=== PATIENT | female | born 1960 | race Caucasian/White ===

== ENCOUNTER 2017-09-12 00:57 | Emergency (ER) | payer OTHER ==
--- NOTE | 2017-09-12 01:50 | PDOC ---
History of Present Illness - General History Source: Patient Exam Limitations: No Limitations - History of Present Illness Initial Comments: 09/12/17 02:09 The patient is a 56 year old female with a significant PMH of hypertension, hyperlipidemia, diabetes, and thyroid problems who presents to the emergency department complaining of weight loss that began approximately 3 months ago and high blood glucose levels for the past 2 weeks. The patient states she has been measuring her glucose at home and in the last 2 weeks reports her glucose levels were 300+. The patient states her glucose level at baseline is normally around 150. The patient notes she has an appointment with her assignment desk assistant on 09/15/17. The patient states she ate at a cheeseburger with fries for lunch and broccoli with fried plantains for dinner at 9PM yesterday. The patient states she normally eats two to three meals a day. The patient notes she is taking synthroid but occasionally forgets to take her meds. The patient denies chest pain, shortness of breath, headache and dizziness. Denies fever, chills, nausea, vomit, diarrhea and constipation. Denies dysuria, frequency, urgency and hematuria. Allergies: NKA Past surgical history: cholecystectomy Social history: No reported alcohol, cigarette, or drug use. PCP: <Korin Cheng - Last Filed: 09/12/17 02:09> <Gila Griffin - Last Filed: 09/12/17 06:31> - General Chief Complaint: Blood Sugar Problem Stated Complaint: WEAKNESS Time Seen by Provider: 09/12/17 01:37 Past History <Korin Cheng - Last Filed: 09/12/17 02:09> - Past Medical History Anemia: No Asthma: No Cancer: No Cardiac Disorders: No CVA: No COPD: No HTN: Yes Hypercholesterolemia: Yes - Surgical History Abdominal Surgery: Yes Appendectomy: Yes Cholecystectomy: Yes - Immunization History Immunization Up to Date: Yes - Suicide/Smoking/Psychosocial Hx Smoking Status: No Smoking History: Never smoked Have you smoked in the past 12 months: No Number of Cigarettes Smoked Daily: 0 Hx Alcohol Use: No Drug/Substance Use Hx: No Substance Use Type: None <Gila Griffin - Last Filed: 09/12/17 06:31> - Past Medical History Allergies/Adverse Reactions: Allergies Allergy/AdvReac Type Severity Reaction Status Date / Time oxycodone HCl [From Percocet] Allergy Nausea Verified 09/06/15 16:28 Home Medications: Ambulatory Orders Simvastatin [Zocor -] 10 mg PO DAILY 09/21/14 Enalapril Maleate [Vasotec] 10 mg PO DAILY 08/08/15 Levothyroxine Sodium [Levoxyl] 25 mcg PO DAILY 09/12/17 Sitagliptin Phosphate [Januvia -] 100 mg PO DAILY@0700 09/12/17 Review of Systems - Review of Systems Able to Perform ROS?: Yes Comments:: 09/12/17 02:12 GENERAL/CONSTITUTIONAL: (+) Weight loss. (+) High blood glucose levels. No fever or chills. No weakness. HEAD, EYES, EARS, NOSE AND THROAT: No change in vision. No ear pain or discharge. No sore throat. CARDIOVASCULAR: No chest pain or shortness of breath. RESPIRATORY: No cough, wheezing, or hemoptysis. GASTROINTESTINAL: No nausea, vomiting, diarrhea or constipation. GENITOURINARY: No dysuria, frequency, or change in urination. MUSCULOSKELETAL: No joint or muscle swelling or pain. No neck or back pain. SKIN: No rash NEUROLOGIC: No headache, vertigo, loss of consciousness, or change in strength/ sensation. ENDOCRINE: No increased thirst. No abnormal weight change. HEMATOLOGIC/LYMPHATIC: No anemia, easy bleeding, or history of blood clots. ALLERGIC/IMMUNOLOGIC: No hives or skin allergy. <Korin Cheng - Last Filed: 09/12/17 02:09> *Physical Exam - Vital Signs Last Vital Signs Temp Pulse Resp BP Pulse Ox 98.1 F 84 18 154/101 100 09/12/17 01:59 09/12/17 01:59 09/12/17 01:59 09/12/17 01:59 09/12/17 01:59 - Physical Exam Comments: 09/12/17 02:13 GENERAL: Awake, alert, and fully oriented, in no acute distress HEAD: No signs of trauma EYES: PERRLA, EOMI, sclera anicteric, conjunctiva clear ENT: Auricles normal inspection, hearing grossly normal, nares patent, oropharynx clear without exudates. Moist mucosa NECK: Normal ROM, supple, no lymphadenopathy, JVD, or masses LUNGS: Breath sounds equal, clear to auscultation bilaterally. No wheezes, and no crackles HEART: Regular rate and rhythm, normal S1 and S2, no murmurs, rubs or gallops ABDOMEN: Soft, nontender, normoactive bowel sounds. No guarding, no rebound. No masses EXTREMITIES: Normal range of motion, no edema. No clubbing or cyanosis. No cords, erythema, or tenderness NEUROLOGICAL: Cranial nerves II through XII grossly intact. Normal speech, normal gait SKIN: Warm, Dry, normal turgor, no rashes or lesions noted. <Korin Cheng - Last Filed: 09/12/17 02:09> ED Treatment Course - LABORATORY CBC & Chemistry Diagram: 09/12/17 02:03 09/12/17 02:03 <Gila Griffin - Last Filed: 09/12/17 06:31> Medical Decision Making - Medical Decision Making 09/12/17 01:59 Pt comes with complaint that she has been losing weight x 3 mos. Pt has DM and she has thyroid problems. She states that all she ate today was a cheeseburger and fries and diet soda. We discussed the fact that she would lose weight if she is not eating enough. Pt has an appointment with her assignment desk assistant on Sep 15 and she will discuss thyroid, DM and weight lodss with her speialist. Today we are checking labs and hydrating patient. 09/12/17 02:59 Labs are normal; TSH pending; acetone negative. 09/12/17 06:30 TSH slightly elevated; pt admits she skips her synthroid and she will be following with endocrine in 3 days. Pt is stable for discharge. CXR normal <Gila Griffin - Last Filed: 09/12/17 06:31> *DC/Admit/Observation/Transfer - Attestations Scribe Attestion: 09/12/17 02:14 Documentation prepared by Korin Cheng, acting as medical planner for Gila Griffin MD. <Korin Cheng - Last Filed: 09/12/17 02:09> - Discharge Dispostion Admit: No <Gila Griffin - Last Filed: 09/12/17 06:31> Diagnosis at time of Disposition: Weakness, Weight loss - Discharge Dispostion Disposition: HOME Condition at time of disposition: Stable - Patient Instructions Printed Discharge Instructions: DI for Weight Loss, DI for Hypothyroidism Print Language: BELARUSIAN
[2017-09-12 02:06] VITALS: TEMP 98.1; BMI 28.3
[2017-09-12 02:11] LABS: URINE APPEARANCE CLEAR; URINE BILIRUBIN NEGATIVE (NEGATIVE); URINE BLOOD NEGATIVE (NEGATIVE); URINE COLOR LTYELLOW; URINE GLUCOSE (UA) 3+ (NEGATIVE); URINE KETONE NEGATIVE (NEGATIVE); URINE NITRITE NEGATIVE (NEGATIVE); URINE PROTEIN NEGATIVE (NEGATIVE); URINE UROBILINOGEN NEGATIVE mg/dL (0.2-1.0)
[2017-09-12 02:15] LABS: EOS % 7.7 % (0-4.5); HEMATOCRIT 43.1 % (32.4-45.2); HEMOGLOBIN 14.3 GM/dL (10.7-15.3); LYMPH % 35.6 % (8-40); MCH 28.4 pg (25.7-33.7); MCHC 33.2 g/dl (32.0-36.0); MEAN CELL VOLUME 85.5 fl (80-96); MEAN PLT VOLUME 8.8 fl (7.5-11.1); NEUT % 48.7 % (42.8-82.8); PLATELET COUNT 248 K/MM3 (134-434); RBC 5.04 M/mm3 (3.60-5.2); RDW 12.8 % (11.6-15.6); WHITE BLOOD COUNT 7.4 K/mm3 (4.0-10.0)
[2017-09-12 02:23] LABS: URINE LEUK ESTERASE 3+ (NEGATIVE)
[2017-09-12 02:24] LABS: EPI CELLS RARE /HPF (FEW)
[2017-09-12 02:42] LABS: ALBUMIN 3.7 g/dl (3.4-5.0); ALK PHOS 100 U/L (45-117); ANION GAP 12 (8-16); BILIRUBIN,TOTAL 0.3 mg/dL (0.2-1.0); BLOOD UREA NITROGEN 17 mg/dL (7-18); CALCIUM 9.4 mg/dL (8.5-10.1); CHLORIDE 99 mmol/L (98-107); CO2 26 mmol/L (21-32); CREATININE 0.9 mg/dL (0.55-1.02); GLUCOSE,RANDOM 282 mg/dL (74-106); SGOT/AST 13 U/L (15-37); SGPT/ALT 24 U/L (12-78); SODIUM 137 mmol/L (136-145); TOT PROT 7.4 g/dl (6.4-8.2)
[2017-09-12 02:57] LABS: ACETONE SERUM NEGATIVE (NEGATIVE)
[2017-09-12 03:59] VITALS: BP 149/80; PULSE 76
== END 2017-09-12 04:30 | disposition home or self-care (01) ==
LOC: JER 00:57
DX: R53.1 Weakness (principal); R63.4 Abnormal weight loss; Z68.22 Body mass index [BMI] 22.0-22.9, adult; E03.9 Hypothyroidism, unspecified; I10 Essential (primary) hypertension; E11.9 Type 2 diabetes mellitus without complications; Z79.84 Long term (current) use of oral hypoglycemic drugs
CPT/HCPCS: 36415; 71020-TC; 80053; 81003; 81015; 82009; 84443; 85025; 87086; 99282-25

== ENCOUNTER 2020-05-18 01:39 | Emergency (ER) | payer OTHER ==
[2020-05-18 02:08] VITALS: TEMP 98.1; BMI 27.4
[2020-05-18] MEDS ORDERED: MAG HYDROX/AL HYDROX/SIMETH 30 ML UNIT-DOSE CUP PO ONE (02:13)
[2020-05-18] MEDS ORDERED: FAMOTIDINE 20 MG/50 ML IVPB 20 MG/50 ML MG IVPB ONE ×2 (02:13→02:39)
--- NOTE | 2020-05-18 02:18 | PDOC ---
History of Present Illness - General Chief Complaint: Pain, Acute Stated Complaint: ABDOMINAL PAIN Time Seen by Provider: 05/18/20 01:46 History Source: Patient Exam Limitations: No Limitations - History of Present Illness Initial Comments: 05/18/20 02:14 HPI: 59 yo F pmh HTN, HLD, DM, ?PCI in January at [facility] presenting with epigastric burning pain for 1 day in setting of eating a burger with buffalo sauce. She reports burning after eating the meal, worsened when laying flat last night and again when laying flat tonight. Tried taking Reyna [place] and seltzer water with lemon with no relief. Denies any discomfort like this before. Pain is burning in quality, radiates straight up to her throat. Denies any other associated symptoms. Denies chest pain, shortness of breath, nausea, vomiting, fevers, chills, recent illness, weakness, fatigue. Reports one surgery, gall bladder removal "many years ago." Meds: Per chart All: Oxycodone PMH: As above PSH: Laura Past History - Travel History Traveled outside of the country in the last 30 days: No Close contact w/someone who was outside of country & ill: No - Medical History Allergies/Adverse Reactions: Allergies Allergy/AdvReac Type Severity Reaction Status Date / Time oxycodone HCl [From Percocet] Allergy Nausea Verified 03/02/20 15:48 Home Medications: Ambulatory Orders Carvedilol [Coreg -] 3.125 mg PO BID 03/02/20 Lisinopril/Hydrochlorothiazide [Lisinopril-Hctz 20-25 mg Tab] 1 each PO DAILY 03/02/20 Metformin HCl [Glucophage] 1,000 mg PO DAILY 03/02/20 Anemia: No Asthma: No Cancer: No Cardiac Disorders: No CVA: No COPD: No Diabetes: Yes HTN: Yes Hypercholesterolemia: Yes Thyroid Disease: Yes (hypo) - Surgical History Abdominal Surgery: Yes Appendectomy: Yes Cholecystectomy: Yes - Reproductive History Is Patient Now?: No - Immunization History Immunization Up to Date: Yes - Psycho-Social/Smoking History Smoking Status: No Smoking History: Never smoked Have you smoked in the past 12 months: No Number of Cigarettes Smoked Daily: 0 - Substance Abuse Hx (Audit-C & DAST Scrn) How often the patient has a drink containing alcohol: Never Score: In Men: 4 or > Positive; In Women: 3 or > Positive: 0 Screen Result (Pos requires Nsg. Audit-10AR): Negative In the last yr the pt used illegal drug/Rx for NonMed reason: No Score: Yes response is considered Positive: 0 Screen Result (Positive result requires Nsg. DAST-10): Negative Review of Systems - Review of Systems Able to Perform ROS?: Yes Is the patient limited Persian proficient: Yes Constitutional: No: Chills, Fever, Weakness HEENTM: No: Recent change in vision, Nose Congestion, Throat Pain Respiratory: No: Cough, Shortness of Breath Cardiac (ROS): No: Chest Pain, Edema, Irregular Heart Rate, Lightheadedness, Palpitations, Syncope, Chest Tightness ABD/GI: No: Constipated, Diarrhea, Nausea, Vomiting : No: Burning, Dysuria, Frequency Musculoskeletal: No: Muscle Pain, Muscle Weakness, Neck Pain Integumentary: No: Bruising, Pruritus, Rash Neurological: No: Headache, Numbness, Tingling, Weakness Psychiatric: No: Stressors, Change in Appetite Endocrine: No: Increased Thirst, Increased Urine, Change in Weight Hematologic/Lymphatic: No: Anemia, Blood Clots, Easy Bleeding All Other Systems: Reviewed and Negative *Physical Exam - Vital Signs Last Vital Signs Temp Pulse Resp BP Pulse Ox 98.1 F 74 20 151/90 100 05/18/20 01:56 05/18/20 01:56 05/18/20 01:56 05/18/20 01:56 05/18/20 01:56 - Physical Exam 05/18/20 02:21 Vitals reviewed, AFVSS GEN: Well appearing, appears stated age, NAD, comfortable. AAOx3. HEENT: NCAT, EOMI, PERRL. Sclera anicteric, noninjected. No facial asymmetry. Moist mucous membranes. Normal voice. Trachea midline. CV: RRR, S1/S2, no murmurs / rubs / gallops appreciated. LUNG: CTABL, normal work of breathing. No wheezes, rales, rhonchi. No cough. Speaking full sentences. GI: Soft, mildly TTP in epigastrium, non-distended, +BS, no guarding, no rebound. No masses. EXTREMITIES: 2+ distal pulses. No clubbing / cyanosis / edema. No gross deform ity in any extremity. SKIN: Warm, dry, no rashes appreciated, non-jaundiced. PSYCH: Normal mood and affect. Cooperative and appropriate. NEURO: CN grossly intact. Moving all extremities well. Normal strength and sensation grossly. Heart Score/ECG Review - History History: Slightly suspicious - Electrocardiogram EKG: Normal - Age Age: 45-65 - Risk Factors Based on the list above the patient has:: >/=3 risk factors or Hx atherosclerotic disease - Troponin Troponin: </= normal limit - Score Heart Score - Total: 3 ED Treatment Course - LABORATORY CBC & Chemistry Diagram: 05/18/20 02:30 05/18/20 02:30 Medical Decision Making - Medical Decision Making 05/18/20 02:18 59 yo F pmh HTN, HLD, DM, ?PCI in January at [facility] presenting with epigastric burning pain for 1 day in setting of eating a burger with buffalo sauce. History notable for burning quality, worse when flat, onset after food, midline location with upward radiation. Exam notable for stable vitals, mildly TTP epigastrium. Together concerning for GERD, less likely PUD in this patient without history, gastritis / early gastroenteritis, will obtain cardiac workup given patient's history. - CBC, CMP, Cardiac - EKG, CXR - Pepcid - Maalox 05/18/20 02:33 EKG with biphasic T wave in V3, sub-mm ST depressions in I and all the precordial leads, c/w prior EKG. Otherwise NSR, normal axis, normal intervals and no acute ST changes. 05/18/20 04:28 BUN elevated, normal creatinine, 1L NS ordered Labs otherwise unremarkable, normal troponin Symptomatically improved Dispo: Home Discharge - Discharge Information Problems reviewed: Yes Clinical Impression/Diagnosis: GERD (gastroesophageal reflux disease) Qualifiers: Esophagitis presence: esophagitis presence not specified Qualified Code(s): K2 1.9 - Gastro-esophageal reflux disease without esophagitis Condition: Stable Disposition: HOME - Admission No - Follow up/Referral - Patient Discharge Instructions Patient Printed Discharge Instructions: DI for Gastroesophageal Reflux Disease (GERD) Additional Instructions: You were seen and evaluated for upper abdominal pain. You may take Maalox or Pepcid (both available over the counter at your pharmacy) for recurrent symptoms. Follow up with your primary care doctor within 1 week. Return to the ED for any new or concerning symptoms including but not limited to: chest pain, nausea and vomiting, inability to breathe. - Post Discharge Activity
[2020-05-18] MEDS ORDERED: ACETAMINOPHEN 325 MG TABLET (FP) PO ONE (02:22)
--- NOTE | 2020-05-18 02:31 | PDOC ---
Attending Attestation - Resident Resident Name: Joshua Ambrose - ED Attending Attestation I have performed the following: I have examined & evaluated the patient, The case was reviewed & discussed with the resident, I agree w/resident's findings & plan - HPI HPI: 05/18/20 04:29 Pt ate cheeseburgers at her daughter's home and she was gassy and uncomfortable since. She has never had abd or chest pain. Just reflux and gas. Pt drove herself to the ER and she states that she will drive herself home. - Physicial Exam PE: 05/18/20 04:30 Agree with resident exam Normal exam Gassy abd sounds in all 4 quadrants. - Medical Decision Making 05/18/20 04:10 Labs normal; EKG normal; EKG unchanged 05/18/20 04:30 Pt feeling better She received 250 ml saline.She is stable for d/c/ home Pepcid and maalox helped. Discharge - Discharge Information Problems reviewed: Yes Clinical Impression/Diagnosis: GERD (gastroesophageal reflux disease) Qualifiers: Esophagitis presence: esophagitis presence not specified Qualified Code(s): K21.9 - Gastro-esophageal reflux disease without esophagitis Condition: Stable Disposition: HOME - Additional Discharge Information Prescriptions: Simethicone [Mylicon -] 80 mg PO DAILY #10 tab.chew - Follow up/Referral - Patient Discharge Instructions Patient Printed Discharge Instructions: DI for Gastroesophageal Reflux Disease (GERD) Additional Instructions: You were seen and evaluated for upper abdominal pain. You may take Maalox or Pepcid (both available over the counter at your pharmacy) for recurrent symptoms. Follow up with your primary care doctor within 1 week. Return to the ED for any new or concerning symptoms including but not limited to: chest pain, nausea and vomiting, inability to breathe. - Post Discharge Activity
[2020-05-18] MEDS ORDERED: ACETAMINOPHEN 325 MG TABLET (FP) ONE (02:38)
[2020-05-18] MEDS ORDERED: MAG HYDROX/AL HYDROX/SIMETH 30 ML UNIT-DOSE CUP ONE (02:39)
[2020-05-18 02:45] LABS: HEMATOCRIT 38.2 % (32.4-45.2); MCH 30.4 pg (25.7-33.7); MEAN CELL VOLUME 89.6 fl (80-96); MEAN PLT VOLUME 8.6 fl (7.5-11.1); PLATELET COUNT 240 K/MM3 (134-434); RBC 4.27 M/mm3 (3.60-5.2); RDW 13.3 % (11.6-15.6); WHITE BLOOD COUNT 6.5 K/mm3 (4.0-10.0)
[2020-05-18 02:46] LABS: BASO % 0.5 % (0-2.0); EOS % 2.7 % (0-4.5); LYMPH % 31.5 % (8-40); MONO % 8.3 % (3.8-10.2)
[2020-05-18 03:00] LABS: INR 0.95 (0.83-1.09); PROTHROMBIN TIME (PATIENT) 11.2 SEC (9.7-13.0)
[2020-05-18 03:13] LABS: ALBUMIN 3.9 g/dl (3.4-5.0); ALK PHOS 83 U/L (45-117); ANION GAP 8 MMOL/L (8-16); BILIRUBIN,TOTAL 0.2 mg/dL (0.2-1); CALCIUM 9.2 mg/dL (8.5-10.1); CHLORIDE 101 mmol/L (98-107); CO2 28 mmol/L (21-32); GLUCOSE,RANDOM 145 mg/dL (74-106); POTASSIUM 3.8 mmol/L (3.5-5.1); SGOT/AST 19 U/L (15-37); SGPT/ALT 25 U/L (13-61); SODIUM 137 mmol/L (136-145); TOT PROT 7.4 g/dl (6.4-8.2)
[2020-05-18] MEDS ORDERED: SODIUM CHLORIDE 0.9% 500 ML INFUS.BAG IV ONE (04:06)
[2020-05-18] MEDS ORDERED: SIMETHICONE 80 MG TAB.CHEW (FP) PO ONE (04:31)
[2020-05-18 06:46] VITALS: BP 144/91; PULSE 82
--- NOTE | 2020-05-18 14:57 | EKG ---
Test Reason : Blood Pressure : / mmHG Vent. Rate : 075 BPM Atrial Rate : 075 BPM P-R Int : 130 ms QRS Dur : 074 ms QT Int : 400 ms P-R-T Axes : 036 010 002 degrees QTc Int : 446 ms NORMAL SINUS RHYTHM NONSPECIFIC ST ABNORMALITY ABNORMAL ECG WHEN COMPARED WITH ECG OF 01-FEB-2020 14:36, T WAVE INVERSION LESS EVIDENT IN ANTERIOR LEADS Confirmed by Tato Sandoval ([id number]) on 05/18/2020 2:57:22 PM Referred By: Confirmed By:Tato Sandoval
== END 2020-05-18 05:40 | disposition home or self-care (01) ==
LOC: JER 01:39
PROC: 3E033GC Introduction of Other Therapeutic Substance into Peripheral Vein, Percutaneous Approach (ICD-10-PCS; principal; 2020-05-18)
DX: K21.9 Gastro-esophageal reflux disease without esophagitis (principal)
CPT/HCPCS: 36415; 71045-TC-FY; 80053; 82550; 83690; 84484; 85025; 85610; 93005; 93010; 99285-25

== ENCOUNTER 2020-05-18 23:03 | Emergency (ER) | payer OTHER ==
[2020-05-18 23:15] VITALS: BP 142/88; PULSE 88; TEMP 98; BMI 24.5
[2020-05-18] MEDS ORDERED: MAG HYDROX/AL HYDROX/SIMETH 30 ML UNIT-DOSE CUP PO ONE (23:21)
[2020-05-18] MEDS ORDERED: SODIUM CHLORIDE 0.9% 500 ML INFUS.BAG IV ONE (23:21)
[2020-05-18] MEDS ORDERED: FAMOTIDINE 20 MG/50 ML IVPB 20 MG/50 ML MG IVPB ONE (23:21)
[2020-05-18] MEDS ORDERED: ACETAMINOPHEN 325 MG TABLET (FP) PO ONE (23:21)
--- NOTE | 2020-05-18 23:59 | PDOC ---
History of Present Illness - General Chief Complaint: Nausea Stated Complaint: NAUSEA Time Seen by Provider: 05/18/20 23:35 - History of Present Illness Initial Comments: 05/18/20 23:54 HPI: 59 yo F pmh HTN, HLD, DM, ?PCI in January at [facility] presenting with epigastric burning pain for 2 days in setting of eating a burger with buffalo sauce. She was discharged yesterday from the ED after normal labs. She reports burning after eating the meal, worsened when laying flat at night. Tried taking Reyna [place] and seltzer water with lemon with no relief. Also took pepto-bismol and tums without relief. Denies any discomfort like this before. Pain is burning in quality, radiates straight up to her throat, with associated nausea. Denies any other associated symptoms. Denies chest pain, shortness of breath, vomiting, fevers, chills, recent illness, weakness, fatigue. Reports one surgery, gall bladder removal "many years ago." Meds: Per chart All: Oxycodone PMH: As above PSH: Laura ROS GENERAL/CONSTITUTIONAL: No fever or chills. No weakness. HEAD, EYES, EARS, NOSE AND THROAT: No change in vision. No ear pain or di scharge. No sore throat. CARDIOVASCULAR: No chest pain or shortness of breath RESPIRATORY: No cough, wheezing, or hemoptysis. GASTROINTESTINAL: epigastric pain and nausea. GENITOURINARY: No dysuria, frequency, or change in urination. MUSCULOSKELETAL: No joint or muscle swelling or pain. No neck or back pain. SKIN: No rash NEUROLOGIC: No headache, vertigo, loss of consciousness, or change in strength/sensation. ENDOCRINE: No increased thirst. No abnormal weight change HEMATOLOGIC/LYMPHATIC: No anemia, easy bleeding, or history of blood clots. ALLERGIC/IMMUNOLOGIC: No hives or skin allergy. PE GENERAL: Awake, alert, and fully oriented, in no acute distress HEAD: No signs of trauma, normocephalic, atraumatic EYES: PERRLA, EOMI, sclera anicteric, conjunctiva clear ENT: Auricles normal inspection, hearing grossly normal, nares patent, oropharynx clear without exudates. Moist mucosa NECK: Normal ROM, supple, no lymphadenopathy, JVD, or masses LUNGS: No distress, speaks full sentences, clear to auscultation bilaterally HEART: Regular rate and rhythm, normal S1 and S2, no murmurs, rubs or gallops, peripheral pulses normal and equal bilaterally. ABDOMEN: Soft, epigastric tenderness. No guarding, no rebound. No masses EXTREMITIES : Normal inspection, Normal range of motion, no edema. No clubbing or cyanosis. NEUROLOGICAL: Cranial nerves II through XII grossly intact. Normal speech, no focal sensorimotor deficits SKIN: Warm, Dry, normal turgor, no rashes or lesions noted Vital Signs Temp Pulse Resp BP Pulse Ox 98 F 88 18 142/88 99 05/18/20 23:08 05/18/20 23:08 05/18/20 23:08 05/18/20 23:08 05/18/20 23:08 MDM: 59 yo F pmh HTN, HLD, DM, ?PCI in January at [facility] presenting with epigastric burning pain for 2 days. Vitals reassuring, physical exam notable for epigastric tenderness. Most likely GERD vs. gastroenteritis vs. IBS. DDx also includes ACS, pancreatitis, SBO, mesenteric ischemia. -CBC, CMP, trops, lipase -EKG -tylenol, pepcid, maalox, fluids -CT A/P w/contrast 05/19/20 00:03 05/19/20 02:34 EKG with sub-mm ST depressions in I, II, aVF, V3-V5, similar to prior EKG. Otherwise NSR, rate 74, normal axis, normal intervals and no acute ST changes. Labs and CT negative for emergent pathology. DC home with simethicone and famotidine Past History - Medical History Allergies/Adverse Reactions: Allergies Allergy/AdvReac Type Severity Reaction Status Date / Time oxycodone HCl [From Percocet] Allergy Nausea Verified 05/18/20 23:10 Home Medications: Ambulatory Orders Carvedilol [Coreg -] 3.125 mg PO BID 03/02/20 Lisinopril/Hydrochlorothiazide [Lisinopril-Hctz 20-25 mg Tab] 1 each PO DAILY 03/02/20 Metformin HCl [Glucophage] 1,000 mg PO DAILY 03/02/20 Simethicone [Mylicon -] 80 mg PO DAILY #10 tab.chew 05/18/20 Famotidine 20 mg PO DAILY #10 tablet 05/19/20 Simethicone 125 mg PO QID PRN 10 Days #40 capsule 05/19/20 Anemia: No Asthma: No Cancer: No Cardiac Disorders: No CVA: No COPD: No Diabetes: Yes HTN: Yes Hypercholesterolemia: Yes Thyroid Disease: Yes (hypo) - Surgical History Abdominal Surgery: Yes Appendectomy: Yes Cholecystectomy: Yes - Immunization History Immunization Up to Date: Yes - Psycho-Social/Smoking History Smoking Status: No Smoking History: Never smoked Have you smoked in the past 12 months: No Number of Cigarettes Smoked Daily: 0 - Substance Abuse Hx (Audit-C & DAST Scrn) How often the patient has a drink containing alcohol: Never Score: In Men: 4 or > Positive; In Women: 3 or > Positive: 0 Screen Result (Pos requires Nsg. Audit-10AR): Negative *Physical Exam - Vital Signs Last Vital Signs Temp Pulse Resp BP Pulse Ox 98 F 88 18 142/88 99 05/18/20 23:08 05/18/20 23:08 05/18/20 23:08 05/18/20 23:08 05/18/20 23:08 ED Treatment Course - LABORATORY CBC & Chemistry Diagram: 05/18/20 23:38 05/18/20 23:38 Discharge - Discharge Information Problems reviewed: Yes Clinical Impression/Diagnosis: Epigastric abdominal pain - Additional Discharge Information Prescriptions: Famotidine 20 mg PO DAILY #10 tablet Simethicone 125 mg PO QID PRN 10 Days #40 capsule PRN Reason: Gas - Follow up/Referral Referrals: Raman Amaro II, DO [Primary Care Provider] - - Patient Discharge Instructions Additional Instructions: You were seen in the ER for abdominal discomfort. We did labs and a CT scan, which did not show any emergent problems. You should follow up with your primary doctor within three days. Please return to the ER for continued or worsening sym ptoms, if you stop passing gas or stool, if you have fever, blood in your stool, or any other reason. - Post Discharge Activity
[2020-05-19] MEDS ORDERED: ACETAMINOPHEN 325 MG TABLET (FP) ONE (00:06)
[2020-05-19] MEDS ORDERED: MAG HYDROX/AL HYDROX/SIMETH 30 ML UNIT-DOSE CUP ONE (00:06)
[2020-05-19] MEDS ORDERED: FAMOTIDINE 20 MG/50 ML IVPB 20 MG/50 ML MG IVPB ONE (00:07)
[2020-05-19 00:18] LABS: BASO % 0.4 % (0-2.0); HEMATOCRIT 38.3 % (32.4-45.2); HEMOGLOBIN 12.9 GM/dL (10.7-15.3); LYMPH % 31.7 % (8-40); MCHC 33.6 g/dl (32.0-36.0); MONO % 7.5 % (3.8-10.2); NEUT % 58.4 % (42.8-82.8); PLATELET COUNT 268 K/MM3 (134-434); RDW 13.1 % (11.6-15.6); WHITE BLOOD COUNT 5.9 K/mm3 (4.0-10.0)
[2020-05-19 00:49] LABS: ALBUMIN 3.7 g/dl (3.4-5.0); ALK PHOS 78 U/L (45-117); ANION GAP 10 MMOL/L (8-16); BILIRUBIN,TOTAL 0.3 mg/dL (0.2-1); BLOOD UREA NITROGEN 17.5 mg/dL (7-18); CHLORIDE 104 mmol/L (98-107); CO2 26 mmol/L (21-32); CREATININE 0.9 mg/dL (0.55-1.3); GLUCOSE,RANDOM 125 mg/dL (74-106); POTASSIUM 3.5 mmol/L (3.5-5.1); SGOT/AST 17 U/L (15-37); SGPT/ALT 25 U/L (13-61); SODIUM 141 mmol/L (136-145); TOT PROT 7.3 g/dl (6.4-8.2)
--- NOTE | 2020-05-19 01:58 | PDOC ---
Documentation entered by Alley Rodriguez SCRIBE, acting as scribe for Gila Griffin MD. Gila Griffin MD: This documentation has been prepared by the baronibeMichael Ana, SCRIBE, under my direction and personally reviewed by me in its entirety. I confirm that the documentation accurately reflects all work, treatment, procedures, and medical decision making performed by me. Attending Attestation - Resident Resident Name: Kevin Clark - ED Attending Attestation I have performed the following: I have examined & evaluated the patient, The case was reviewed & discussed with the resident, I agree w/resident's findings & plan, Exceptions are as noted - HPI HPI: 05/19/20 00:04 Patient is a 59 year old female with a significant past medical history of hypertension, hyperlipidemia, and diabetes, who presents to the ED with epigastric pain x2 days. Patient stated she ate a burger with buffalo sauce 2 days ago and ever since then has been experiencing pain and a "burning sensation" which radiates up her throat associated with nausea. Patient said her symptoms become worse when she lays flat. Patient disclosed she attempted to self medicate prior to ED arrival but experienced no relief. Patient denies: weakness, fever, chills, SOB, vomiting, chest pain, recent illness, or any other related symptoms. Allergies: oxycodone HCl - Physicial Exam PE: 05/19/20 04:00 Agree with resdient exam - Medical Decision Making 05/19/20 00:45 Pt returns with nausea today. She was here yesterday for epigastric gas and gassiness in the abdomen and GERD symptoms. 05/19/20 00:46 Pt will have labs redone, so that we can compare with yesterday and look fro changes. Pt will have CT scan today to r/o obstruction. 05/19/20 01:58 Patient Name: JEOVANY ELLISON THIS IS A PRELIMINARY REPORT DATE OF SERVICE: 2020-05-19 01:08:20 IMAGES: [id number] EXAM: ABDOMEN \\T\\ PELVIS CT WITH CONTR HISTORY: Rule out SBO COMPARISON: None. FINDINGS: Lung bases are clear. The visualized cardiac chambers are normal size and configuration. Tiny right liver hypodensities likely a cyst. Status post cholecystectomy without biliary duct dilation. Normal pancreas, spleen, adrenal glands and kidneys. The stomach and abdominal small and large bowel are normal. There is no aortic aneurysm. There is no significant retroperitoneal lymphadenopathy. The pelvic small and large bowel are normal. The appendix is normal. The uterus and adnexal structures are normal. Urinary bladder is unremarkable. There is minimal pelvic free fluid. No discrete pelvic lymphadenopathy is identified. IMPRESSION: No localizing signs for acute pathology Discharge - Discharge Information Problems reviewed: Yes Clinical Impression/Diagnosis: Epigastric abdominal pain Condition: Improved Disposition: HOME - Additional Discharge Information Prescriptions: Famotidine 20 mg PO DAILY #10 tablet Simethicone 125 mg PO QID PRN 10 Days #40 capsule PRN Reason: Gas - Follow up/Referral Referrals: Raman Amaro II, DO [Primary Care Provider] - - Patient Discharge Instructions Additional Instructions: You were seen in the ER for abdominal discomfort. We did labs and a CT scan, which did not show any emergent problems. You should follow up with your primary doctor within three days. Please return to the ER for continued or worsening symptoms, if you stop passing gas or stool, if you have fever, blood in your stool, or any other reason. - Post Discharge Activity
[2020-05-19] MEDS ORDERED: SIMETHICONE 80 MG TAB.CHEW (FP) PO ONE (01:59)
== END 2020-05-19 02:50 | disposition home or self-care (01) ==
LOC: JER 23:03
PROC: 3E033GC Introduction of Other Therapeutic Substance into Peripheral Vein, Percutaneous Approach (ICD-10-PCS; principal; 2020-05-18)
DX: R10.13 Epigastric pain (principal)
CPT/HCPCS: 36415; 74177-TC; 80053; 82550; 83690; 84484; 85025; 99285-25; Q9967

== ENCOUNTER 2020-05-30 02:52 | Emergency (ER) | payer OTHER ==
[2020-05-30 03:08] VITALS: BP 147/68; PULSE 78; TEMP 98.6; BMI 23.7
--- NOTE | 2020-05-30 03:15 | PDOC ---
History of Present Illness - General Chief Complaint: Blood Pressure Problem Stated Complaint: BLOOD PRESSURE PROBLEM Time Seen by Provider: 05/30/20 03:01 - History of Present Illness Initial Comments: 59 yo female with PMH of htn, hld, dm, sinusitis presents after an episode of nose bleeding. She says blood came out her nose and in her spit that spontaneously resolved. She is worried this is a result of her hypertension since she hasn't been able to check her BP at home for 2 weeks due to problems with her bp cuff. She is compliant with her medication. She is currently asymptomatic and denies fatigue, garcia, fevers, chills, cp, sob, nvd, abd pain, dysuria, sinus tenderness. She endorses that the air is dry in her home and the last time this happened, it was alleviated with a [employer] humidifier. Past History - Medical History Allergies/Adverse Reactions: Allergies Allergy/AdvReac Type Severity Reaction Status Date / Time oxycodone HCl [From Percocet] Allergy Nausea Verified 05/30/20 03:07 Home Medications: Ambulatory Orders Carvedilol [Coreg -] 3.125 mg PO BID 03/02/20 Lisinopril/Hydrochlorothiazide [Lisinopril-Hctz 20-25 mg Tab] 1 each PO DAILY 03/02/20 Metformin HCl [Glucophage] 1,000 mg PO DAILY 03/02/20 Simethicone [Mylicon -] 80 mg PO DAILY #10 tab.chew 05/18/20 Famotidine 20 mg PO DAILY #10 tablet 05/19/20 Simethicone 125 mg PO QID PRN 10 Days #40 capsule 05/19/20 Anemia: No Asthma: No Cancer: No Cardiac Disorders: No CVA: No COPD: No Diabetes: Yes HTN: Yes Hypercholesterolemia: Yes Thyroid Disease: Yes (hypo) - Surgical History Abdominal Surgery: Yes Appendectomy: Yes Cholecystectomy: Yes - Reproductive History Is Patient Now?: No - Immunization History Immunization Up to Date: Yes - Psycho-Social/Smoking History Smoking Status: No Smoking History: Never smoked Have you smoked in the past 12 months: No Number of Cigarettes Smoked Daily: 0 Information on smoking cessation initiated: No - Substance Abuse Hx (Audit-C & DAST Scrn) How often the patient has a drink containing alcohol: Never Score: In Men: 4 or > Positive; In Women: 3 or > Positive: 0 Screen Result (Pos requires Nsg. Audit-10AR): Negative In the last yr the pt used illegal drug/Rx for NonMed reason: No Score: Yes response is considered Positive: 0 Screen Result (Positive result requires Nsg. DAST-10): Negative Review of Systems - Review of Systems Constitutional: No: Chills, Fever HEENTM: No: Symptoms Reported, Double Vision Respiratory: No: Cough, Orthopnea, Shortness of Breath Cardiac (ROS): No: Chest Pain, Palpitations, Syncope ABD/GI: No: Constipated, Diarrhea, Nausea, Vomiting : No: Flank Pain, Hematuria Musculoskeletal: No: Back Pain, Muscle Pain Integumentary: No: Flushing, Lesions Neurological: No: Headache, Tingling, Weakness, Dizziness Psychiatric: No: Anxiety, Depression, Mood Swings Endocrine: No: Intolerance to Cold, Intolerance to Heat, Unexplained Weight Gain *Physical Exam - Vital Signs Last Vital Signs Temp Pulse Resp BP Pulse Ox 98.6 F 78 20 147/68 100 05/30/20 03:05 05/30/20 03:05 05/30/20 03:05 05/30/20 03:05 05/30/20 03:05 - Physical Exam General Appearance: Yes: Appropriately Dressed. No: Apparent Distress HEENT: positive: EOMI, Normal Voice, Other (No evidence of hemorrhage in ear, nose, throat. ) Neck: negative: Tender, Rigid Respiratory/Chest: positive: Lungs Clear, Normal Breath Sounds. negative: Respiratory Distress Cardiovascular: positive: Regular Rhythm, Regular Rate, S1, S2. negative: Edema, JVD, Murmur Gastrointestinal/Abdominal: positive: Flat, Soft. negative: Tender Musculoskeletal: positive: Normal Inspection. negative: CVA Tenderness Extremity: positive: Normal Capillary Refill, Normal Inspection, Normal Range of Motion Integumentary: positive: Normal Color, Dry, Warm Neurologic: positive: Fully Oriented, Alert, Normal Mood/Affect Medical Decision Making - Medical Decision Making 59 yo female with PMH of htn, hld, dm, sinusitis presents with a transient episode of nasal bleeding that has since resolved. No evidence of bleeding in ear/nose/throat. Pt is worried about an elevated bp. BP is 147/68 in triage. Pt is asymptomatic Pt is stable for discharge. 05/30/20 04:10 Discharge - Discharge Information Problems reviewed: Yes Clinical Impression/Diagnosis: Nasal bleeding Condition: Stable Disposition: HOME - Admission No - Follow up/Referral - Patient Discharge Instructions Patient Printed Discharge Instructions: How to Monitor Your Blood Pressure at Home Additional Instructions: Obtain a humidifier to help ease the nasal irritation from the dry air. Continue taking your home medications as prescribed. Follow up with your PCP for further monitoring of your condition. Return to the ED if your symptoms worsen and/or you experience recurrent bleeding, headache, nausea, vomiting, chest pain, shortness of breath. - Post Discharge Activity
--- NOTE | 2020-05-30 03:29 | PDOC ---
Attending Attestation - Resident Resident Name: Maurice Adorno - ED Attending Attestation I have performed the following: I have examined & evaluated the patient, The case was reviewed & discussed with the resident, I agree w/resident's findings & plan, Exceptions are as noted - HPI HPI: 05/30/20 03:23 59 yo female with PMH of htn, hld, dm, sinusitis p/w concern for elevated BP after she had a nose bleed at home. She reports having a nose bleed at home that self resolved but thought it might be due to elevated BP but isn't able to check her BP at home because of problems with her BP cuff so she came to the ED. Reports compliance with her medications. Denies all medical complaints at this time. States the air is dry in her home. - Physicial Exam PE: 05/30/20 03:25 General: well appearing Chest: CTAB, good air entry CVS: + s1 s2, RRR Neuro: ambulatory with steady gait, awake, alert, no focal deficits - Medical Decision Making 05/30/20 03:26 59 yo F here s/p epistaxis, self resolved, no medical complaints at present time, BP at triage 147/68, no further workup indicated at this time. Plan: -d/c with return precautions, recommend humidifier at home and PMD f/u This clinical encounter is taking place during a federal and state health care emergency attributable to the novel Hernandez Virus pandemic. The [place] Supervisor of the Department of Health and Human Services has declared, pursuant to the Public Health Service Act 319F-3 (42 U.S.C. 247d-6d), that a covered persons activities related to medical countermeasures against COVID-19 will be immune from liability under Federal and State law. Discharge - Discharge Information Problems reviewed: Yes Clinical Impression/Diagnosis: Nasal bleeding Condition: Stable Disposition: HOME - Follow up/Referral - Patient Discharge Instructions Patient Printed Discharge Instructions: How to Monitor Your Blood Pressure at Home Additional Instructions: Obtain a humidifier to help ease the nasal irritation from the dry air. Continue taking your home medications as prescribed. Follow up with your PCP for further monitoring of your condition. Return to the ED if your symptoms worsen and/or you experience recurrent bleeding, headache, nausea, vomiting, chest pain, shortness of breath. - Post Discharge Activity
== END 2020-05-30 03:32 | disposition home or self-care (01) ==
LOC: JER 02:52
DX: R04.0 Epistaxis (principal)
CPT/HCPCS: 99282-25

== ENCOUNTER 2020-06-22 10:45 | Emergency (ER) | payer OTHER ==
[2020-06-22 11:17] VITALS: BP 138/93; PULSE 83; TEMP 98.2; BMI 26.9
--- OUTSIDE RECORDS SUMMARY | 2020-06-22 11:19 | XMS ---
:1960 Author Organization [facility] Support Name Relationship Address Phone DEEPAK ELLISON DAUGHTER [address] [place] [address] UE, UNEMPLOYED Unavailable Unavailable Unavailable UE Unavailable Unavailable Unavailable NENO ELLISON [address] [phone] [place] [address] NENO ELLISON Spouse [address] [place] [address] Re-disclosure Warning The records that you are about to access may contain information from federally- assisted alcohol or drug abuse programs. If such information is present, then the following federally mandated warning applies: This information has been disclosed to you from records protected by federal confidentiality rules (42 CFR part 2). The federal rules prohibit you from making any further disclosure of this information unless further disclosure is expressly permitted by the written consent of the person to whom it pertains or as otherwise permitted by 42 CFR part 2. A general authorization for the release of medical or other information is NOT sufficient for this purpose. The Federal rules restrict any use of the information to criminally investigate or prosecute any alcohol or drug abuse patient.The records that you are about to access may contain highly sensitive health information, the redisclosure of which is protected by Article 27-F of the [facility] Public Health law. If you continue you may haveaccess to information: Regarding HIV / AIDS; Provided by facilities licensed or operated by the [facility] Office of Mental Health; or Provided by the [facility] Office for People With Developmental Disabilities. If such information is present, then the following [facility] mandated warning applies: This information has been disclosed to you from confidential records which are protected by state law. State law prohibits you from making any further disclosure of this information without the specific written consent of the person to whom it pertains, or as otherwise permitted by law. Any unauthorized further disclosure in violation of state law may result in a fine or correction sentence or both. A general authorization for the release of medical or other information is NOT sufficient authorization for further disclosure. Encounters Encounter Providers Location Date Indications Data Source(s ) Outpatient [facility] 07/05/2019 eCW3 ([facility] A28 12:00:00 AM Health Care) EDT - 07/05/2019 12:00:00 AM EDT Medications Medication Brand Start Product Dose Route Administrative Pharmacy [facility] Indications Reaction Description Data Name Date Form Instructions Instructions Source(s) Blood UNK 05/29/ active Blood eCW3 Pressure 2020 Pressure Kit (Hu dson Kit 12:00: [facility] 00 AM Health EDT Care) Metformin Metfor .0 active Metformin eCW3 hydrochlori min 2019 {tabl HCl 1000 MG ([place] de 1000 MG HCl 12:00: et_wi [facility] Oral Tablet 1000 00 AM th_a_ Health Metformin MG EDT meal} Care) HCl 1000 MG Trazodone Trazod active Trazodone eCW3 Hydrochlori one 2019 {tabl HCl 150 MG ( [facility] de 150 MG HCl 12:00: et_at [facility] Oral Tablet 150 MG 00 AM _bedt Heal th Trazodone EDT atnhony} Care) HCl 150 MG carvedilol Carved .0 active Carvedil ol eCW3 3.125 MG ilol 2019 {tabl 3.125 MG ([place] Oral Tablet 3.125 12:00: et_wi [place] r Carvedilol MG 00 AM th_fo Health 3.125 MG EDT od} Care) Hydrochloro Lisino .0 active Lisinop ril-H eCW3 thiazide 25 pril-H 2019 {tabl ydrochloro th (Watson MG / ydroch 12:00: et} iazide 20-25 Garry er Lisinopril loroth 00 AM MG Health 20 MG Oral iazide EDT Care) Tablet 20-25 Lisinopril- MG Hydrochloro thiazide 20-25 MG ONE TOUCH UNK active ONE TOUCH eCW 3 TEST STRIPS TEST STRIPS ( Watson compatible compatible Garry er with with patient Health patient Care) TEST STRIP UNK active TEST STRIP e CW3 Compatible Compatible (Hu dson with Pt with Pt [facility]) Insurance Providers Payer name Policy type Policy ID Covered Covered libertarian's Policy P marcelle / Coverage libertarian ID relationship to Richey Inf ormation type richey MEDICAID [id number] SP [id number] [facility] [id number] SP [id number] COMPLETE Problems, Conditions, and Diagnoses Code Display Name Description Problem Type Effective Data Dates Source(s) I25.10 Atherosclerotic Atherosclerotic Problem 02/13/2020 eCW3 ([place] heart disease of heart disease of 12:00:00 AM [facility] [place] coronary [place] coronary EDT Care ) artery without artery without angina pectoris angina pectoris I25.83 Coronary Coronary Problem 02/13/2020 eCW3 ([place] atherosclerosis due atherosclerosis due 12:00:0 0 AM [facility] to lipid rich plaque to lipid rich plaque EDT Care) Z92.89 Hospitalization or Hospitalization or Problem 0 eCW3 ([facility] health care facility 12:00 :00 AM [facility] admission within admission within EDT Ca re) last 6 months last 6 months Results ID Date Data Source [id number] 02/02/2020 10:15:00 AM EDT [facility] Name Value Range Interpretation Description Data Sup porting Code Source(s) Document(s ) SARS [facility] coronavirus 2 RNA This lab was ordered by Matt Capps and reported by [facility]. Procedure Social History Code Duration Value Status Description Data Source(s ) Smoking 05/10/2020 12:00:00 Never Smoker completed Never Smoker e CW3 ([facility]) Smoking 07/05/2019 12:00:00 Never Smoker completed Never Smoker e CW3 ([facility]) Vital Signs ID Date Data Source UNK Name Value Range Interpretation Code Description Data Source(s) Diastolic blood 94 mm[Hg] 94 mm[Hg] eCW3 ([facility]) Systolic blood 164 mm[Hg] 164 mm[Hg] eCW3 ([facility]) Body temperature 98.4 [degF] 98.4 [degF] eCW3 ( [facility]) Heart rate 20 /min 20 /min eCW3 ([facility]) Body mass index 29.69 kg/m2 29.69 kg/m2 eCW3 (Shefali cheema (BMI) [Ratio] [facility]) Body weight 165 [lb_av] 165 [lb_av] eCW3 ([facility]) Body height 62.5 [in_i] 62.5 [in_i] eCW3 ([facility]) Patient Treatment Plan of Care Planned Activity Planned Date Details Description Data Source (s) Blood Pressure Kit 05/29/2020 12:00:00 AM eCW3 ([facility])
--- NOTE | 2020-06-22 11:32 | PDOC ---
History of Present Illness - General Chief Complaint: Injury Stated Complaint: LF FOOT INJURY (BIG TOE) Time Seen by Provider: 06/22/20 11:26 History Source: Patient Exam Limitations: No Limitations - History of Present Illness Initial Comments: 06/22/20 11:27 Patient is a 59-year-old female with a history of diabetes and high blood pressure presents to the ED with concern of her left great toenail falling off. She states that 1 week ago she kicked into a table at [facility] and had an injury to her left great toe. She states yesterday she accidentally kicked her other leg and noticed this morning that her toenail was about to fall off. She was concerned since she is diabetic. She has been taking antibiotics for a dental procedure but she started 1 week ago. The patient has an appointment with a research epidemiologist on July 15 but was concerned so came to the ED for evaluation. Past History - Medical History Allergies/Adverse Reactions: Allergies Allergy/AdvReac Type Severity Reaction Status Date / Time oxycodone HCl [From Percocet] Allergy Nausea Verified 06/22/20 11:17 Home Medications: Ambulatory Orders Carvedilol [Coreg -] 3.125 mg PO BID 03/02/20 Lisinopril/Hydrochlorothiazide [Lisinopril-Hctz 20-25 mg Tab] 1 each PO DAILY 03/02/20 Metformin HCl [Glucophage] 1,000 mg PO DAILY 03/02/20 Simethicone [Mylicon -] 80 mg PO DAILY #10 tab.chew 05/18/20 Famotidine 20 mg PO DAILY #10 tablet 05/19/20 Simethicone 125 mg PO QID PRN 10 Days #40 capsule 05/19/20 Anemia: No Asthma: No Cancer: No Cardiac Disorders: No CVA: No COPD: No Diabetes: Yes HTN: Yes Hypercholesterolemia: Yes Thyroid Disease: Yes (hypo) - Surgical History Abdominal Surgery: Yes Appendectomy: Yes Cholecystectomy: Yes - Reproductive History Is Patient Now?: No - Immunization History Immunization Up to Date: Yes - Psycho-Social/Smoking History Smoking Status: No Smoking History: Never smoked Have you smoked in the past 12 months: No Number of Cigarettes Smoked Daily: 0 Information on smoking cessation initiated: No - Substance Abuse Hx (Audit-C & DAST Scrn) How often the patient has a drink containing alcohol: Never Score: In Men: 4 or > Positive; In Women: 3 or > Positive: 0 Screen Result (Pos requires Nsg. Audit-10AR): Negative In the last yr the pt used illegal drug/Rx for NonMed reason: No Score: Yes response is considered Positive: 0 Screen Result (Positive result requires Nsg. DAST-10): Negative Review of Systems - Review of Systems Comments:: 06/22/20 11:28 - Review of Systems Able to Perform ROS?: Yes Constitutional: No: Fever, Chills, Loss of Appetite, Night Sweats, Weakness HEENTM: No: Eye Pain, Vision changes, Ear Pain, Throat Pain, Throat Swelling, Mouth Pain, Difficulty Swallowing Respiratory: No: Cough, Shortness of Breath, Wheezing, Sputum Production Cardiac (ROS): No: Chest Pain, Chest Tightness, Palpitations, Irregular Heart Beat, Edema ABD/GI: No: Nausea, Vomiting, Abdominal Pain, Diarrhea : No Dysuria, No Hematuria, No Frequency, No Urgency Musculoskeletal: No: Muscle Pain, Back Pain, Joint Pain, Muscle Weakness, Neck Pain; positive: Left great toenail injury Integumentary: No: Lesions, Rash Neurological: No: Headache, Numbness, Tingling, Weakness, Speech Difficulties *Physical Exam - Vital Signs Last Vital Signs Temp Pulse Resp BP Pulse Ox 98.2 F 83 17 138/93 97 06/22/20 11:14 06/22/20 11:14 06/22/20 11:14 06/22/20 11:14 06/22/20 11:14 - Physical Exam 06/22/20 11:28 - Physical Exam General Appearance: Nourished, Appropriately Dressed, No Distress Neck: Supple, No Lymphadenopathy (R), No Lymphadenopathy (L), No Rigidity, No Decreased range of motion Respiratory/Chest: Lungs Clear, Normal Breath Sounds. No Respiratory Distress, No Accessory Muscle Use Cardiovascular: Regular Rhythm, Regular Rate, S1, S2 Musculoskeletal: Normal Inspection. No Decreased Range of Motion Extremity: Normal Capillary Refill, Normal Inspection; left great toenail with an avulsion appreciated to the lateral and proximal borders. Toenail still attached on the medial border. A new toenail is already growing roughly 3 mm of new growth. There is no sign of infection. No purulence. No crepitus. No erythema. No tenderness to palpation. Integumentary: Normal Color, Dry. No Rash Neurologic: honeycomb decapper II-XII NML intact, Fully Oriented, Alert, Normal Mood/Affect, Normal Response Medical Decision Making - Medical Decision Making 06/22/20 11:29 Assessment: Patient is a 59-year-old female with a left great toenail avulsion. Plan: -I have made the patient aware that secondary to her being diabetic she should not have the toenail removed in the emergency department -We will keep the toenail in place with a bandage and she should do the same until she follows up with podiatry. She is also been made aware that she should allow the toe to breathe and should she wash it several times daily to prevent infection. If she is home relaxing she should keep the toe uncovered to allow the skin to dry and not macerate. No antibiotics are indicated at this time. We will also refer the patient to another research epidemiologist to see if she can get a sooner appointment. She understands and agrees with this treatment plan and she is stable for discharge Discharge - Discharge Information Problems reviewed: Yes Clinical Impression/Diagnosis: Avulsion of toenail of left foot Condition: Stable Disposition: HOME - Follow up/Referral Referrals: Raman Amaro II, DO [Primary Care Provider] - Ariela Olea DPM [Staff Physician] - Call tomorrow - Patient Discharge Instructions Patient Printed Discharge Instructions: DI for Nail Avulsion Injury Additional Instructions: Keep the area clean and dry. You can wash the toe several times daily to keep it clean. Cover the toe if away from home or wearing shoes. Cover the toe while sleeping to prevent the toenail from coming off. Call the research epidemiologist you were referred to to see if you get a sooner appointment. Get plenty rest and drink plenty of fluids. Return for high fevers, shaking chills, pus from the toe, redness of the toe, or any other worsening symptoms. Mantenga el guille limpia y seca. Puede lavarse el dedo del pie varias veces al da para mantenerlo limpio. Cbrase la puntera si est fuera de casa o si usa zapatos. Cubra el dedo del pie mientras duerme para evitar que la ua del pie se desprenda. Llame al podlogo al que lo remitieron para susana si consigue sophie scar antes. Descanse lo suficiente y lorenzo muchos lquidos. Regrese por fiebre yonathan, escalofros, pus del dedo del pie, enrojecimiento del dedo del pie o cualquier otro sntoma que empeore. Print Language: INDONESIAN - Post Discharge Activity
== END 2020-06-22 11:40 | disposition home or self-care (01) ==
LOC: JERFT 10:45 → JER 10:45 → JERFT 11:40
DX: S91.202A Unspecified open wound of left great toe with damage to nail, initial encounter (principal)
CPT/HCPCS: 99282-25

== ENCOUNTER 2021-01-12 23:55 | Emergency (ER) | payer OTHER ==
[2021-01-13 00:26] VITALS: BP 152/84; PULSE 92; TEMP 99.1; BMI 25.9
[2021-01-13] MEDS ORDERED: SODIUM CHLORIDE 0.9% 500 ML INFUS.BAG IV ONE (00:29)
[2021-01-13] MEDS ORDERED: ACETAMINOPHEN 1000 MG/100 ML VIAL (NON FORMULARY) IVPB ONE (00:29)
[2021-01-13] MEDS ORDERED: ACETAMINOPHEN INJECTION 100 ML IVPB ONE (01:02)
[2021-01-13 01:05] LABS: BASO % 0.3 % (0-2.0); EOS % 0.1 % (0-4.5); HEMATOCRIT 41.8 % (32.4-45.2); HEMOGLOBIN 14.2 GM/dL (10.7-15.3); LYMPH % 14.7 % (8-40); MCH 29.6 pg (25.7-33.7); MCHC 33.9 g/dl (32.0-36.0); MEAN CELL VOLUME 87.1 fl (80-96); MEAN PLT VOLUME 9.4 fl (7.5-11.1); MONO % 9.7 % (3.8-10.2); NEUT % 75.2 % (42.8-82.8); PLATELET COUNT 155 K/MM3 (134-434); RDW 13.2 % (11.6-15.6)
[2021-01-13 01:16] LABS: PH,URINE 6.5 (5.0-8.0); URINE APPEARANCE CLEAR; URINE BILIRUBIN NEGATIVE (NEGATIVE); URINE COLOR YELLOW; URINE GLUCOSE (UA) NEGATIVE (NEGATIVE); URINE KETONE 2+ (NEGATIVE); URINE LEUK ESTERASE NEGATIVE (NEGATIVE); URINE NITRITE NEGATIVE (NEGATIVE); URINE PROTEIN NEGATIVE (NEGATIVE); URINE UROBILINOGEN 0.2 mg/dL (0.2-1.0)
[2021-01-13 01:24] LABS: INR 1.04 (0.83-1.09); PROTHROMBIN TIME (PATIENT) 12.8 SEC (9.7-13.0)
[2021-01-13 01:24] LABS: CHLORIDE 100 mmol/L (98-107); SODIUM 137 mmol/L (136-145)
[2021-01-13 01:26] LABS: CALCIUM 8.6 mg/dL (8.5-10.1); LIPASE 112 U/L (73-393)
[2021-01-13 01:27] LABS: ACTIVATED PTT 28.6 SECONDS (25.2-36.5)
[2021-01-13 01:27] LABS: ALBUMIN 3.1 g/dl (3.4-5.0); ANION GAP 10 MMOL/L (8-16); BLOOD UREA NITROGEN 7.3 mg/dL (7-18); CO2 27 mmol/L (21-32); GLUCOSE,RANDOM 148 mg/dL (74-106)
[2021-01-13] MEDS ORDERED: POTASSIUM CHLORIDE TABS 20 MEQ TABLET.ER (FP) PO ONE (01:27)
[2021-01-13 01:29] LABS: SGPT/ALT 24 U/L (13-61)
[2021-01-13 01:30] LABS: CREATININE 0.7 mg/dL (0.55-1.3); SGOT/AST 32 U/L (15-37)
[2021-01-13 01:31] LABS: BILIRUBIN,TOTAL 0.4 mg/dL (0.2-1)
[2021-01-13] MEDS ORDERED: POTASSIUM CHLORIDE ORAL LIQUID 20 MEQ/15 ML ONE (01:31)
[2021-01-13 01:32] LABS: ALK PHOS 102 U/L (45-117)
== END 2021-01-13 02:12 | disposition home or self-care (01) ==
LOC: JER 23:55
PROC: 3E0333Z Introduction of Anti-inflammatory into Peripheral Vein, Percutaneous Approach (ICD-10-PCS; principal; 2021-01-12)
DX: R10.84 Generalized abdominal pain (principal); M79.10 Myalgia, unspecified site; R68.83 Chills (without fever)
CPT/HCPCS: 36415; 71045-TC-FY; 80053; 81003; 83690; 84484; 85025; 85610; 85730; 87077; 87086; 93005; 93010; 99285-25; C9803; J0131; U0003; U0005

== ENCOUNTER 2021-03-19 02:03 | Emergency (ER) | payer OTHER ==
[2021-03-19 02:34] VITALS: BP 145/87; PULSE 78; TEMP 97.7; BMI 25.1
== END 2021-03-19 05:38 | disposition home or self-care (01) ==
LOC: JER 02:03
DX: G50.0 Trigeminal neuralgia (principal)
CPT/HCPCS: 70450-TC; 93005; 93010; 99284-25

== ENCOUNTER 2021-04-02 13:32 | Emergency (ER) | payer OTHER ==
[2021-04-02 13:53] VITALS: BP 155/95; PULSE 90; TEMP 98.3; BMI 25.9
== END 2021-04-02 14:46 | disposition home or self-care (01) ==
LOC: JER 13:32
DX: R09.81 Nasal congestion (principal); M79.10 Myalgia, unspecified site; Z11.52 Encounter for screening for COVID-19
CPT/HCPCS: 99283-25; C9803; U0003; U0005

== ENCOUNTER 2021-05-29 05:36 | Emergency (ER) | payer OTHER ==
[2021-05-29 06:16] VITALS: BP 150/97; PULSE 79; TEMP 98.8; BMI 22.3
[2021-05-29] MEDS ORDERED: SODIUM CHLORIDE 0.9% 500 ML INFUS.BAG IV ONE (07:55)
[2021-05-29 08:58] LABS: BASO % 0.3 % (0-2.0); HEMOGLOBIN 14.4 GM/dL (10.7-15.3); LYMPH % 19.1 % (8-40); MCH 30.2 pg (25.7-33.7); MCHC 34.2 g/dl (32.0-36.0); MEAN CELL VOLUME 88.4 fl (80-96); MEAN PLT VOLUME 8.7 fl (7.5-11.1); MONO % 6.8 % (3.8-10.2); NEUT % 72.8 % (42.8-82.8); PLATELET COUNT 250 10^3/uL (134-434); RBC 4.75 M/mm3 (3.60-5.2); RDW 12.9 % (11.6-15.6); WHITE BLOOD COUNT 4.7 K/mm3 (4.0-10.0)
[2021-05-29 09:11] LABS: EPI CELLS 15 /uL (0-25.1); HYALINE CASTS 1 /uL (0-3.1); PH,URINE 5.5 (5.0-8.0); URINE APPEARANCE CLEAR; URINE BACTERIA 37 /uL (0-1359); URINE BILIRUBIN NEGATIVE (NEGATIVE); URINE COLOR YELLOW; URINE GLUCOSE (UA) 3+ (NEGATIVE); URINE KETONE 3+ (NEGATIVE); URINE LEUK ESTERASE 1+ (NEGATIVE); URINE NITRITE NEGATIVE (NEGATIVE); URINE PROTEIN NEGATIVE (NEGATIVE); URINE RBC 6 /uL (0-23.9); URINE WBC 34 /uL (0-25.8)
[2021-05-29 09:13] LABS: ALBUMIN 3.6 g/dl (3.4-5.0); BLOOD UREA NITROGEN 17.1 mg/dL (7-18); CALCIUM 9.4 mg/dL (8.5-10.1)
[2021-05-29 09:16] LABS: CREATININE 0.8 mg/dL (0.55-1.3)
[2021-05-29 09:17] LABS: BILIRUBIN,TOTAL 0.5 mg/dL (0.2-1); TOT PROT 7.6 g/dl (6.4-8.2)
== END 2021-05-29 11:15 | disposition home or self-care (01) ==
LOC: JER 05:36
DX: R53.1 Weakness (principal)
CPT/HCPCS: 36415; 80053; 81003; 85025; 87077; 87086; 99283-25

== ENCOUNTER 2022-11-29 03:00 | Emergency (ER) | payer OTHER ==
[2022-11-29 03:09] VITALS: BP 164/91; PULSE 79; RESP 20; TEMP 97.5; BMI 27.1
[2022-11-29] MEDS ORDERED: LACTATED RINGERS SOLUTION 1000 ML INFUS.BAG IV ONE (03:58)
[2022-11-29 04:28] LABS: BASO % 0.5 % (0-2.0); EOS % 2.1 % (0-4.5); HEMATOCRIT 39.2 % (32.4-45.2); HEMOGLOBIN 13.7 GM/dL (10.7-15.3); LYMPH % 28.1 % (8-40); MCH 30.4 pg (25.7-33.7); MEAN CELL VOLUME 86.8 fl (80-96); MEAN PLT VOLUME 8.5 fl (7.5-11.1); MONO % 8.7 % (3.8-10.2); NEUT % 60.6 % (42.8-82.8); PLATELET COUNT 281 10^3/uL (134-434); RBC 4.52 M/mm3 (3.60-5.2); RDW 13.1 % (11.6-15.6)
[2022-11-29 04:32] LABS: URINE APPEARANCE CLEAR; URINE BILIRUBIN NEGATIVE (NEGATIVE); URINE COLOR YELLOW; URINE GLUCOSE (UA) 3+ (NEGATIVE); URINE KETONE NEGATIVE (NEGATIVE); URINE LEUK ESTERASE TRACE (NEGATIVE); URINE NITRITE NEGATIVE (NEGATIVE); URINE PROTEIN NEGATIVE (NEGATIVE); URINE UROBILINOGEN 0.2 mg/dL (0.2-1.0)
[2022-11-29 04:59] LABS: CALCIUM 8.8 mg/dL (8.5-10.1)
[2022-11-29 05:00] LABS: ALBUMIN 3.4 g/dl (3.4-5.0); BLOOD UREA NITROGEN 23.4 mg/dL (7-18)
[2022-11-29 05:04] LABS: BILIRUBIN,TOTAL 0.2 mg/dL (0.2-1)
[2022-11-29 05:05] LABS: TOT PROT 6.9 g/dl (6.4-8.2)
[2022-11-29 12:21] LABS: EPI CELLS FEW /uL (0-25.1); URINE RBC FEW /uL (0-23.9); URINE WBC MODERATE /uL (0-25.8)
[2022-11-29 12:22] LABS: URINE BACTERIA FEW /uL (0-1359)
== END 2022-11-29 05:13 | disposition home or self-care (01) ==
LOC: JER 03:00
DX: E11.65 Type 2 diabetes mellitus with hyperglycemia (principal); Z79.84 Long term (current) use of oral hypoglycemic drugs
CPT/HCPCS: 36415; 80053; 81003; 82962; 85025; 87086; 99284-25